=== PATIENT | female | born 1950 | race Caucasian/White ===

== ENCOUNTER 2018-02-16 18:06 | Emergency (ER) | payer MEDICARE, OTHER ==
--- NOTE | 2018-02-16 19:24 | EDM.PDOC ---
ED HPI GENERAL MEDICAL PROBLEM - General Chief Complaint: Fever Stated Complaint: [facility] Time Seen by Provider: 02/16/18 19:00 Source of Information: Reports: Patient, Family History Limitations: Reports: No Limitations - History of Present Illness INITIAL COMMENTS - FREE TEXT/NARRATIVE: 67-year-old female that has an ongoing problem with diverticulitis, and gastro- urinary fistula who is expected to have surgery when she returns from her vacation. She was given Augmentin to take if she develops a fever or abdominal pain. This morning she developed a low-grade fever but no pain so thought she would just wait, and tonight spiked a temperature to 104 so got scared and called the ambulance. She has not had any antibiotic. She did take 2 Tylenol and is feeling much better. She still has no pain. Onset: Sudden Severity: Moderate Associated Symptoms: Reports: Fever/Chills, Malaise, Other (She's had several loose stools today). 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 - Related Data Allergies Allergy/AdvReac Type Severity Reaction Status Date / Time amitriptyline [From Elavil] Allergy Confusion Verified 02/16/18 18:17 Home Meds: Home Meds Amoxicillin/Clavulanate K [Augmentin 875-125 MG] 1 tab PO BID 02/16/18 [History] Naproxen 500 mg PO BID 02/16/18 [History] atorvaSTATin [Lipitor] 10 mg PO BEDTIME 02/16/18 [History] Past Medical History Respiratory History: Reports: Asthma, Bronchitis, Recurrent Gastrointestinal History: Reports: Diverticulosis, Other (See Below) Other Gastrointestinal History: recent history of diverticulitis with fistula formation from bowel to bladder. Plan surgical repair on return to [place]. 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: Musculoskeletal History: Reports: Osteoarthritis - Past Surgical History GI Surgical History: Reports: Appendectomy Musculoskeletal Surgical History: Reports: Shoulder Surgery Social & Family History - Tobacco Use Smoking Status *Q: Never Smoker - Caffeine Use Caffeine Use: Reports: Coffee - Alcohol Use Days Per Week of Alcohol Use: 2 Number of Drinks Per Day: 1 Total Drinks Per Week: 2 - Recreational Drug Use Recreational Drug Use: No ED ROS GENERAL - Review of Systems Review Of Systems: See Below Constitutional: Reports: Fever, Chills, Malaise HEENT: Reports: No Symptoms Respiratory: Denies: Shortness of Breath Cardiovascular: Denies: Chest Pain GI/Abdominal: Reports: Diarrhea. Denies: Abdominal Pain, Nausea, Vomiting : Reports: Other (She thinks she is seeing some stool in her urine, this is been an ongoing problem). Denies: Dysuria, Urgency Skin: Reports: No Symptoms Neurological: Reports: No Symptoms Psychiatric: Reports: No Symptoms ED EXAM, GENERAL - Physical Exam Exam: See Below Exam Limited By: No Limitations General Appearance: Alert, No Apparent Distress Eye Exam: Bilateral Eye: Normal Inspection Head: Atraumatic Respiratory/Chest: No Respiratory Distress Cardiovascular: Regular Rate, Rhythm GI/Abdominal: Normal Bowel Sounds, Soft, Non-Tender Neurological: Alert, Oriented Skin Exam: Warm, Dry Course - Vital Signs Last Recorded V/S: Last Vital Signs Temp 101.5 F H 02/16/18 18:35 Pulse 108 H 02/16/18 18:35 Resp 20 02/16/18 18:35 BP 121/62 02/16/18 18:35 Pulse Ox 96 02/16/18 18:35 - Orders/Labs/Meds Meds: Medications Discontinued Medications Generic Name Dose Route Start Last Admin Trade Name Stanislav PRN Reason Stop Dose Admin Ampicillin Sodium/Sulbactam 100 mls @ 200 mls/hr 02/16/18 19:16 02/16/18 19: 35 Sodium 3 gm/ Sodium Chloride IV 02/16/18 19:45 200 mls/hr ONETIME ONE Administration Sodium Chloride 1,000 mls @ 1,000 mls/hr 02/16/18 19:30 02/16/18 19:32 Normal Saline IV 1,000 mls/hr ASDIRECTED DERIAN Administration - Re-Assessments/Exams Free Text/Narrative Re-Assessment/Exam: 02/16/18 19:24 Patient just had a CT scan last week, and has a surgical consultation next week. She was given 3 g of IV Unasyn and allowed to take her first dose of Augmentin. No additional workup needed. Departure - Departure Time of Disposition: 20:29 Disposition: Home, Self-Care 01 Condition: Good Clinical Impression: Diverticulitis - Discharge Information Instructions: Fever, Adult, [id number] Referrals: PCP,None [Primary Care Provider] - Forms: ED Department Discharge Care Plan Goals: Continue your antibiotic with food twice daily until you get home. Return anytime if worsening despite treatment, or you start vomiting and can't take your medication.
[2018-02-16] MEDS: Sodium Chloride 0.9% 1,000 ML IV SCH (19:32)
[2018-02-16] MEDS: Ampicillin/Sulbactam Na 3 GM in Sodium Chloride 0.9% 100 ML IV ONE (19:35)
== END 2018-02-16 20:31 | disposition home or self-care (01) ==
LOC: JP.ED 18:06
DX: K57.92 Diverticulitis of intestine, part unspecified, without perforation or abscess without bleeding (principal)
CPT/HCPCS: 96365; 99284; J0295; J7030